=== PATIENT | female | born 2000 | race Hispanic/Latino ===

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

== ENCOUNTER 2019-06-10 01:54 | Emergency (ER) | payer OTHER ==
--- NOTE | 2019-06-10 07:57 | RAD ---
EXAM: Chest PA and lateral: HISTORY: Cough. Fever. COMPARISON: 05/05/2018 FINDINGS: Heart: Normal cardiac silhouette Aorta: Unremarkable Pulmonary vessels: Normal Costophrenic angles: Costophrenic angles are clear. Lungs: No consolidation or masses. Pneumothorax: No pneumothorax Osseous structures: No osseous abnormalities IMPRESSION: No acute cardiopulmonary process.
== END 2019-06-10 03:10 | disposition home or self-care (01) ==
LOC: ERS 01:54
DX: J06.9 Acute upper respiratory infection, unspecified (principal)
CPT/HCPCS: 71046; 87804

== ENCOUNTER 2019-09-14 19:01 | Emergency (ER) | payer OTHER | END 2019-09-14 19:18 | disposition left against medical advice (07) | LOC: ERS 19:01 | DX: Z53.21 Procedure and treatment not carried out due to patient leaving prior to being seen by health care provider (principal) ==

== ENCOUNTER 2019-12-13 00:03 | Emergency (ER) | payer OTHER ==
[2019-12-13 00:36] LABS: Bilirubin Negative (Negative); Blood, Urine Negative (Negative); Clarity Clear (Clear); Glucose, Urine (Dipstick) Normal (Negative); Leukocyte Negative Leu/uL (Negative); Nitrite Negative (Negative); Protein, Urine (Dipstick) Negative (Neg-Trace); Urobilinogen Normal mg/dL (Less than 2)
[2019-12-13 01:13] LABS: BHCG - Serum POSITIVE (NEGATIVE); Pregs Control Background? CLEAR/WHITE (CLR/WHITE); Pregs Control Bar Appear? YES (CONTROL BAR)
--- NOTE | 2019-12-13 08:10 | ULT ---
PRELIMINARY REPORT/[facility]/EMERGENCY AFTER HOURS PROCEDURE EXAM: US Obstetrical, Complete <14 weeks CLINICAL HISTORY: HX: PELVIC PAIN AT 11WKS PREG. SEE NOTES ON LAST IMAGE. THANKS TECHNIQUE: Transabdominal imaging of the maternal pelvis and a <14 week gestation with image documentation. COMPARISON: None provided. FINDINGS: GESTATION: Single live intrauterine gestation with a crown-rump length of 5.2 cm corresponding to gestational ag e of 11 weeks and 6 days. heart rate of 181 bpm. Yolk sac visualized. UTERUS: Unremarkable. No myometrial mass. OVARIES: Bilateral ovaries demonstrate Doppler vascular flow. No adnexal mass visualized FREE FLUID: Small amount of free fluid. IMPRESSION: Single viable intrauterine corresponding to a gestational age of 11 weeks and 6 days. No ac manpreet abnormality. ELECTRONICALLY SIGNED BY: Angelika Petit MD December 13, 2019 2:30:19 AM CDT This report is intended for review by the ordering physician only, in accordance of law. If you recei ve this report in error, please call [facility] at [phone]. Final report by Dr. Ca: Emergency after-hours study ULTRASOUND: EARLY OBSTETRICAL: HISTORY: 19-year-old female with pelvic pain. FINDINGS: Agreement with preliminary report by [facility]. IMPRESSION: [place] live intrauterine gestation estimated to be 11 weeks 5 days gestational age. Transcribed Date/Time: 12/13/2019 8:46 AM
== END 2019-12-13 03:05 | disposition home or self-care (01) ==
LOC: ERS 00:03
DX: O99.89 Other specified diseases and conditions complicating pregnancy, childbirth and the puerperium (principal); R10.30 Lower abdominal pain, unspecified; Z3A.01 Less than 8 weeks gestation of pregnancy
CPT/HCPCS: 76856; 81003; 84703

== ENCOUNTER 2020-02-16 10:38 | Emergency (ER) | payer OTHER ==
[2020-02-17 12:48] LABS: SARS-CoV-2 MS2 Positive; SARS-CoV-2 N Gene Positive; SARS-CoV-2 S Gene Positive; SARS-CoV-2 orf1ab Negative
== END 2020-02-16 11:55 | disposition home or self-care (01) ==
LOC: ERS 10:38
DX: U07.1 COVID-19 (principal)
CPT/HCPCS: 87635; 99283; U0003

== ENCOUNTER 2020-04-01 23:20 | Day surgery (SDC) | payer OTHER ==
[2020-04-01 23:43] VITALS: BP 110/62; TEMP 98.9; BMI 19.0
--- NOTE | 2020-04-02 00:05 | PDOC.LDHP ---
Labor and Delivery H&P Chief complaint: abdominal pain HPI: 19 yo F at 26.5 wks presented to L&D triage with complaints of abdominal pain. She states that starting in early January she experienced abdominal cramping that would occur sporadically, not elicited by any specific activity or inciting events. This cramping is located in her central abdomen and until today was not associated with any other symptoms. Tonight she noted that she was having some cramping early in the afternoon and around 1900 she developed pain in her sides radiating up to her ribs and down to her hips. Since this was new it concerned her prompting her to seek evaluation. Denies any complications with currently. Notes hx of frequent UTIs but not during this but multiple within the last year. Denies any fever, chills, N/V/D, dysuria, LOF, decreased FM. Pt was diagnosed with COVID-19 in mid January but has not had any sx of this for over 1 mo. Current gestational age (weeks): 26 (5) Grav: 1 Para: 0 OB History Details: No complications per patient Current complications: none Past Medical History: None Current medications: pre-anton vitamins Previous surgical history: none Allergies/Adverse Reactions: Allergies Allergy/AdvReac Type Severity Reaction Status Date / Time iodine Allergy Hives Verified 04/01/20 23:38 Social history: none - Physical Exam Vital signs reviewed and normal: yes General: resting Heart: RRR Lungs: CTAB Abdomen: other (minimal tenderness to mid and epigastric palpation) Extremeties: no edema FHT: category 1 [place] contractions every: No contractions seen on toco - Vaginal Exam cm dilated: 0 Effacement: 0% Station: -3 - OB Labs Blood type: unknown RH: unknown Antibody Screen: unknown HIV: unknown RPR: unknown HEPSAg: unknown - Assessment Normal 2nd Trimester - Plan -: R/O labor - no contractions on toco, no cervical change, spec exam with slightly increased thickness of normal discharge - no pooling and negative valsalva UA: small amount of ketones, no signs of infection VP3 and Gonorrhea/Chlamydia swabs taken and pending - will call if positive VSS and non specific exam No signs of infection or acute abdominal process Discussed return precautions and measures to take at home to help with pains. These findings and plan were discussed with Dr. Tyler who saw the patient and agrees Luis Antonio Arroyo DO PGY2 Addendum - Attending - Attending Attestation Date/Time: 04/02/20 [id number] I personally evaluated the patient and discussed the management with Dr. Arroyo I agree with the History, Examination, Assessment and Plan documented above with any addition or exceptions noted below.
[2020-04-02 01:11] LABS: Bacteria/HPF None Seen HPF (None Seen); Bilirubin Negative (Negative); Blood, Urine Negative (Negative); Clarity Clear (Clear); Glucose, Urine (Dipstick) Normal (Negative); Ketone, Urine 10 mg/dL (Negative); Leukocyte Negative Leu/uL (Negative); Nitrite Negative (Negative); Protein, Urine (Dipstick) Negative (Neg-Trace); RBC/HPF 0-3 HPF (0-3); Specific Gravity, Urine 1.004 (1.002-1.036); Squamous Epithelial None Seen HPF (0-3); Urobilinogen Normal mg/dL (Less than 2); WBC/HPF 0-3 HPF (0-3)
[2020-04-02 01:12] LABS: Urine Culture Reflex No No
[2020-04-02] MEDS ORDERED: Acetaminophen 500 MG TAB PO SCH (01:15)
[2020-04-03 17:24] LABS: Chlamydia by PCR Not Detected (NotDetected); GC by PCR Not Detected (NotDetected)
== END 2020-04-02 01:35 | disposition home or self-care (01) ==
LOC: L&D/OP 23:20
PROVIDERS: ATTEND Nurse Practitioner Family
DX: O99.89 Other specified diseases and conditions complicating pregnancy, childbirth and the puerperium (principal); R10.9 Unspecified abdominal pain; Z3A.26 26 weeks gestation of pregnancy; Z91.041 Radiographic dye allergy status
CPT/HCPCS: 51701; 81001; 87480; 87491; 87510; 87591; 87660; 99285

== ENCOUNTER 2020-06-24 07:40 | Outpatient (CLI) | payer OTHER ==
[2020-06-25 20:28] LABS: SARS-CoV-2 MS2 Positive; SARS-CoV-2 N Gene Negative; SARS-CoV-2 S Gene Negative; SARS-CoV-2 by NAA Not Detected (NotDetected); SARS-CoV-2 orf1ab Negative
== END 2020-06-24 07:41 | disposition home or self-care (01) ==
LOC: LABBT 07:40
PROVIDERS: ATTEND Advanced Practice Midwife
DX: Z20.828 Contact with and (suspected) exposure to other viral communicable diseases (principal)
CPT/HCPCS: 87635; U0003

== ENCOUNTER 2020-06-27 19:30 | Inpatient (IN) | payer OTHER ==
--- NOTE | 2020-06-27 18:43 | PDOC.LDHP ---
Labor and Delivery H&P Chief complaint: scheduled induction (elective) HPI: Patient arrives for elective IOL at term Current gestational age (weeks): 39 Due date: 07/04/20 Dating criteria: first trimester ultrasound (at 7w2d) Grav: 2 Para: 0 OB History Details: 2015 Current complications: other (Anemia) Abnormal US findings: No Past Medical History: Asthma Current medications: pre-anton vitamins Previous surgical history: none Allergies/Adverse Reactions: Allergies Allergy/AdvReac Type Severity Reaction Status Date / Time iodine Allergy Hives Verified 04/01/20 23:38 Social history: none - Physical Exam Vital signs reviewed and normal: yes General: breathing through contractions Lungs: nonlabored breathing Abdomen: gravid Extremeties: no edema FHT: variable decelerations - Vaginal Exam cm dilated: 0 Effacement: 0% Station: -3 - OB Labs Blood type: O RH: positive Antibody Screen: negative HIV: negative RPR: negative HEPSAg: negative 1 hour GCT: negative GBS: negative - Assessment L&D Assessment: elective induction at term - Plan Plan: admit to L&D, cervical ripening, informed consent obtained, anesthesia consult for pain management
[~2020-06-27 19:30] MED LIST changes: +HYDROcodone/Acetaminophen 5/325 mg Tablet PO PRN; +Ibuprofen 800 MG TAB PO PRN; -Iopamidol 370 76% 100 ML VIAL ONE; +Lidocaine 1% (PF) 30 ML VIAL SC PRN; +Methylergonovine 0.2 MG/ML VIAL IM PRN; +Misoprostol 200 MCG TAB PR PRN; +NS / Oxytocin 40 units/1000ml 1,000 ML IV PRN; +NS w/ Oxytocin 10 units 500 ML IV SCH; +Ondansetron PF 4 MG/2 ML Vial IVP PRN; +Promethazine HCl 25 MG/ML VIAL IM PRN; +hydrALAZINE 20 MG/ML VIAL SLOW IVP PRN
[2020-06-27] MEDS: Lactated Ringer's 1,000 ML IV SCH (20:35)
[2020-06-27] MEDS: Misoprostol 100 MCG TAB VAG SCH (20:46)
[2020-06-27 20:59] VITALS: BMI 22.6
[2020-06-27 21:09] LABS: Hemoglobin 9.1 g/dL (12.0-16.0); Mean Corpuscular HGB CONC 31.9 g/dL (32.0-36.0); Mean Corpuscular Hemoglobin 27.8 pg (27.0-31.0); Platelet Count 356 thou/uL (130-400); RBC Distribution Width 13.9 % (11.5-14.5); Red Blood Cell (RBC) Count 3.28 mill/uL (4.20-5.40); White Blood Cell (WBC) Count 9.6 thou/uL (4.8-10.8)
[2020-06-27 21:54] LABS: Syphilis Antibody Nonreactive (Nonreactive); Syphilis Antibody Index 0.06 S/CO (<1.00 Non-Reactive)
[2020-06-27 22:29] LABS: HBSAg Index 0.18 S/CO (0-0.99); Hep B Surf Ag Non-Reactive S/CO (NonReactive)
[2020-06-27] MEDS ORDERED: Fentanyl 100 MCG/2 ML VIAL ONE (22:33)
[2020-06-28] MEDS: Misoprostol 100 MCG TAB VAG SCH ×3 (02:06→19:33)
[2020-06-28] MEDS: Lactated Ringer's 1,000 ML IV SCH ×2 (06:41→15:33)
--- NOTE | 2020-06-28 08:16 | PDOC.BPN ---
- Brief Progress Note Encounter Date: 06/28/20 Encounter Time: 08:14 Cervical exam 50/-2. FHT baseline 155, mod variability, +accels, no decels, Cat 1 Mild palpated contractions Q1min. patient is resting through them. Place another 50mcg cytotec PV when contraction pattern allows per protocol.
[2020-06-28] MEDS ORDERED: FLU VACC QS2020-21(6MOS UP)/PF 60 MCG/0.5 ML SYRINGE IM ONE (09:00)
[2020-06-28] MEDS: Butorphanol Tartrate 1 MG/ML VIAL SLOW IVP PRN ×3 (12:44→19:36)
--- NOTE | 2020-06-28 12:49 | PDOC.BPN ---
- Brief Progress Note Encounter Date: 06/28/20 Encounter Time: 12:44 Cooks balloon placed with 60mLs in each side. Patient tolerated well. Regular diet x 1 then return to clear diet.
[2020-06-29] MEDS: Lactated Ringer's 1,000 ML IV SCH ×3 (05:42→18:50)
[2020-06-29] MEDS: Misoprostol 100 MCG TAB VAG SCH (05:42)
[2020-06-29] MEDS ORDERED: Acetaminophen 500 MG TAB PO PRN ×2 (14:21→14:24)
--- NOTE | 2020-06-29 14:25 | PDOC.BPN ---
- Brief Progress Note Encounter Date: 06/29/20 Encounter Time: 08:15 AROM and IUPC placed at time of AROM /. Clear fluid. IUPC placed without difficulty. Pt was on 12 units of pitocin at the time.
--- NOTE | 2020-06-29 14:27 | PDOC.BPN ---
- Brief Progress Note Encounter Date: 06/29/20 Encounter Time: 14:18 RN notified pt temp was 100.0 and tachycardia. Orders placed for Ampicillin and gentamicin IVPB and 1000mg given.
[2020-06-29] MEDS: AMPicillin 1 GM in Sodium Chloride 0.9% 100 ML IVPB SCH ×2 (15:58→21:38)
[2020-06-29] MEDS ORDERED: Gentamicin 240 MG in Sodium Chloride 0.9% 100 ML IVPB SCH (16:00)
[2020-06-29] MEDS ORDERED: Bupivacaine 0.5% 20 ML, fentaNYL Citrate/PF 400 MCG in Sodium Chloride 0.9% 72 ML EPIDURAL SCH (18:00)
[2020-06-29] MEDS ORDERED: DISCONTINUE ALL PREVIOUS NARCOTICS FS SCH (18:00)
[2020-06-29] MEDS ORDERED: Ondansetron PF 4 MG/2 ML Vial IVP PRN ×2 (18:30→23:35)
[2020-06-29] MEDS ORDERED: Lactated Ringer's 500 ML IV PRN (18:30)
[2020-06-29] MEDS ORDERED: Fentanyl 4 mcg/Bupivacaine 0.1% Cassette 100 ML EPIDURAL SCH (18:30)
[2020-06-29] MEDS ORDERED: Promethazine HCl 25 MG/ML VIAL IM PRN ×2 (18:30→23:35)
[2020-06-29] MEDS ORDERED: Naloxone HCl 0.4 mg/ml Vial IVP PRN ×4 (18:30→23:35)
[2020-06-29] MEDS ORDERED: ePHEDrine 50 MG/ML VIAL SLOW IVP PRN (18:30)
[2020-06-29] MEDS ORDERED: Acetaminophen 325 MG TAB PO PRN (18:30)
[2020-06-29] MEDS ORDERED: diphenhydrAMINE 50 MG/ML VIAL IVP PRN ×2 (18:30→23:35)
[2020-06-29] MEDS ORDERED: Communication Order-Pharmacy FS SCH ×2 (18:30→23:45)
[2020-06-29] MEDS ORDERED: CEFAZOLIN 2 GM in Premix Bag 1 BAG IVPB SCH (22:45)
[2020-06-29] MEDS ORDERED: Azithromycin 500 MG in Sodium Chloride 0.9% 250 ML 250 ML IVPB SCH (22:45)
[2020-06-29] MEDS ORDERED: Bicitra 30 ML UDCUP PO SCH (22:45)
--- NOTE | 2020-06-29 22:47 | PDOC.BPN ---
- Brief Progress Note Encounter Date: 06/29/20 Encounter Time: 22:45 discussed proceeding with delivery due to failure to descend and failure to progress. pt agrees with plan or care. Azithromycin and Ancef.
[2020-06-29] MEDS ORDERED: Morphine PF 10 MG/10 ML VIAL ONE (23:00)
[2020-06-29] MEDS ORDERED: Fentanyl 100 MCG/2 ML VIAL ONE (23:00)
[2020-06-29] MEDS ORDERED: Oxytocin 10 UNITS/ML VIAL ONE (23:01)
[2020-06-29] MEDS ORDERED: CEFAZOLIN 1 GM VIAL ONE (23:01)
[2020-06-29] MEDS ORDERED: Dexamethasone 4 mg/ml Vial ONE (23:01)
[2020-06-29] MEDS ORDERED: Ketorolac Tromethamine 30 MG/ML VIAL ONE (23:01)
[2020-06-29] MEDS ORDERED: PHENYLEPHRINE-NS 100 MCG/ML 10 ML SYRINGE ONE (23:01)
[2020-06-29] MEDS ORDERED: ePHEDrine 50 MG/ML VIAL ONE (23:01)
[2020-06-29] MEDS ORDERED: Ondansetron PF 4 MG/2 ML Vial ONE (23:21)
[2020-06-29] MEDS ORDERED: Promethazine HCl 25 MG SUPP PR PRN (23:35)
[2020-06-29] MEDS ORDERED: Meperidine HCl/PF 25 MG/ML VIAL SLOW IVP PRN (23:35)
[2020-06-29] MEDS ORDERED: Ondansetron HCl/PF 4 MG/2 ML Vial IVP PRN (23:35)
[2020-06-29] MEDS ORDERED: L&D-Morphine 4 MG/ML VIAL SLOW IVP PRN (23:35)
[2020-06-29] MEDS ORDERED: HYDROmorphone 2 MG/ML VIAL SLOW IVP PRN (23:35)
[2020-06-29] MEDS ORDERED: Naloxone HCl 0.4 mg/ml Vial IV PRN (23:35)
[2020-06-29] MEDS ORDERED: Ketorolac Tromethamine 30 MG/ML VIAL IVP SCH (23:45)
--- NOTE | 2020-06-30 00:07 | PDOC.OPDEL ---
OB Operative/Delivery Note Delivery Dr/Surgeon: Nayeli Assist: Light Pre-Delivery Diagnosis: elective induction Procedure/Post Delivery Dx: primary low transverse CS Weeks gestation: 39 Anesthesia: epidural - Findings A Sex: female Weight: 6 lb 10 oz - 1 min: 8 - 5 min: 9 - Additional Findings/Plan Placenta delivered: manual removal Compilations/Other Findings: chorioamnionitis on antibiotics. Will continue for next 24 hours. Post delivery plan: routine recovery
[2020-06-30] MEDS ORDERED: Acetaminophen 325 MG TAB PO PRN (04:02)
[2020-06-30] MEDS ORDERED: Methylergonovine 0.2 MG/ML VIAL IM PRN (04:02)
[2020-06-30] MEDS ORDERED: hydrALAZINE 20 MG/ML VIAL SLOW IVP PRN (04:02)
[2020-06-30] MEDS ORDERED: diphenhydrAMINE 25 MG CAP PO PRN (04:02)
[2020-06-30] MEDS ORDERED: Misoprostol 200 MCG TAB PR PRN (04:02)
[2020-06-30] MEDS ORDERED: NS / Oxytocin 40 units/1000ml 1,000 ML IV SCH (04:02)
[2020-06-30] MEDS ORDERED: Sodium Chloride 0.9% 10 ML ONE ×2 (04:30→20:22)
[2020-06-30] MEDS: Ketorolac Tromethamine 30 MG/ML VIAL IVP PRN ×2 (04:33→11:32)
--- NOTE | 2020-06-30 05:51 | OP ---
DATE OF PROCEDURE: 06/27/2020 PRIMARY OB: Ms. Bartlett Jinny, certified nurse straightedge man. PREOPERATIVE DIAGNOSES: 1. Intrauterine at 39 weeks and 3 days. 2. Rest of labor. 3. Chorioamnionitis. 4. Persistent transverse malpresentation. POSTOPERATIVE DIAGNOSES: 1. Intrauterine at 39 weeks and 3 days. 2. Rest of labor. 3. Chorioamnionitis. 4. Persistent transverse malpresentation. PROCEDURES: Primary lower transverse section. COPPER MINER BLASTING: Tri Stearns, certified nurse straightedge man. ESTIMATED BLOOD LOSS: 700 mL. QUANTITATIVE BLOOD LOSS: Not available at this time. COUNTS: Correct. COMPLICATIONS: None. FINDINGS: Female infant delivered in vertex transverse lie at 2325 on 06/29/2020. Apgars are 9 and 9. Weight unavailable at time of dictation. One nuchal cord x1 was noted. DESCRIPTION OF PROCEDURE: The patient after being counseled to the reasons behind the recommended primary of arrest, the patient was taken back to the operating room. Of note, the patient has been in the long induction process of over 48 hours with little progress today since removal of the Aguila balloon. Fetus was noted to be in a persistent transverse lie in -2 station. After being taken to the operating room, she was placed in dorsal supine position with a leftward tilt. She was prepared and draped in a normal sterile fashion. After testing for adequacy of anesthesia, the patient's family was brought back. A Pfannenstiel skin incision was made, which was carried down to the level of the fascia. Fascia was incised and extended laterally with Cantu scissors. The fascia was then sharply and bluntly dissected off the underlying rectus muscles. Peritoneal cavity was entered into bluntly and extended bluntly. The Miguelito O retractor was then inserted without difficulty and used for self retraction. The head was noted to be very close to the Pfannenstiel incision. A bladder flap was created and taken down and hysterotomy was made in the lower uterine segment in a transverse fashion. head was delivered to the hysterotomy with little difficulty and delivered a sterile field. The infant was wrapped in a blanket and delayed cord clamping was performed. At least one minute has passed, a cord was clamped and cut. The was passed off to the waiting attendants. The placenta was then delivered manually and then the uterus was cleared of all clot and debris. Fundus was noted to be firm with more boggy lower uterine segment. The hysterotomy was closed in with #1 PDS in a running locking suture and followed by a second-imbricating layer. Inspection of the hysterotomy showed some residual bleeding on the left side, which was closed with a single [id number]. Upon inspection of the uterus, the bladder was noted to be fairly close to the second layer of imbricating sutures to the point that the bladder was backfilled to better identify its boundaries. The uterine remained clear without any signs of bleeding. The bladder was backfilled to show the boundaries of the bladder and some very minimal sharp dissection was made in the adventitial layer in the right corner, where it was closest to the underlying suture clarifying that the boundaries of the bladder was not interrupted by the suture itself. With this done, the bladder was drained off sterile milk and the procedure was continued. The peritoneal cavity was then closed with 2-0 chromic in a running fashion. The fascia was closed with 0 Vicryl in a running fashion. The subcuticular fat was closed with 3-0 plain gut in a running fashion. The skin was closed with 4-0 Monocryl in a running fashion. At this point, the procedure was completed and the patient was placed back in the hands of anesthesia nursing staff for transport to recovery. Of note, the music sound light technician upon removal of the Aguila noted that there was some bleeding in the catheter and at the end of that, the Aguila bulb itself had been ruptured. At this point in time, discussion was made with the nursing staff who backfilled the bladder and realized that she had inadvertently filled the bladder through the Aguila port and ruptured the bulb itself. It appeared that the bulb which was a silicone catheter did not appear to have any residual pieces missing. Job ID: [id number]
[2020-06-30] MEDS: AMPicillin 1 GM in Sodium Chloride 0.9% 100 ML IVPB SCH ×3 (08:03→20:19)
[2020-06-30] MEDS: Ferrous Sulfate 325 MG TAB PO SCH ×2 (08:07→20:20)
[2020-06-30] MEDS: Docusate Calcium (SURFAK) 240 MG CAP PO SCH ×2 (08:07→20:20)
[2020-06-30] MEDS: Prenatal Vitamin 1 TAB PO SCH (08:08)
[2020-06-30] MEDS ORDERED: Adacel (T-DAP) 0.5 ML SYRINGE IM ONE (09:00)
[2020-06-30] MEDS: Ondansetron ODT 4 MG TAB PO PRN ×2 (12:09→20:35)
[2020-06-30] MEDS: Lactated Ringer's 1,000 ML IV SCH (14:05)
[2020-06-30] MEDS: Misoprostol 100 MCG TAB VAG SCH ×2 (14:06→14:07)
[2020-06-30] MEDS: HYDROcodone/Acetaminophen 5/325 mg Tablet PO PRN ×2 (16:19→20:35)
[2020-06-30] MEDS: Simethicone Chewable 80 MG TAB PO PRN (16:19)
--- NOTE | 2020-06-30 16:58 | PDOC.PP ---
Post Progress Note Post Day #: 1 Subjective: Pt is very tired. has not been upout of bed yet, but plans on taking a shower soon. PO intake tolerated: yes Flatus: yes Ambulation: yes Vital Signs (12 hours) Temp Pulse Resp BP Pulse Ox 06/30/20 16:20 98.6 F 117 H 18 100/52 L 06/30/20 11:47 98.5 F 108 H 20 98/53 L 97 06/30/20 08:19 97.6 F 120 H 20 114/55 L 98 06/30/20 05:45 117 H 06/30/20 05:15 98.0 F 131 H 15 123/60 Weight Weight 108 lb - Physical Examination General: NAD Respiratory: non-labored breathing Abdominal: lochia (minimal), no distention, appropriately TTP Skin: CS incision dry & intact, no rash Neurological: no gross focal deficits Psychiatric: A&Ox3, normal affect Result Diagrams: 06/27/20 20:43 Additional Labs: Post Labs Hep Bs Antigen Non-Reactive S/CO (NonReactive) 06/27/20 20:43 Blood Type O POSITIVE 06/27/20 20:43 (1) Failure of descent in labor, delivered, current hospitalization Code(s): O62.2 - OTHER UTERINE INERTIA Status: Acute (2) Status post primary low transverse section Code(s): Z98.891 - HISTORY OF UTERINE SCAR FROM PREVIOUS SURGERY Status: Acute (3) Chorioamnionitis Code(s): O41.1290 - CHORIOAMNIONITIS, UNSP TRIMESTER, NOT APPLICABLE OR UNSP Status: Acute Qualifiers: Trimester: third trimester - Assessment/Plan A: G1 now p1 s/p LTCS for failure to progress Chorioamnionitis Slight tachycardia secondary to anemia P: Continue abx x 24 hours hemagram in am routine care
[2020-06-30] MEDS ORDERED: Gentamicin 240 MG in Sodium Chloride 0.9% 100 ML IVPB SCH (17:30)
[2020-07-01] MEDS: AMPicillin 1 GM in Sodium Chloride 0.9% 100 ML IVPB SCH ×2 (02:16→07:35)
[2020-07-01] MEDS: HYDROcodone/Acetaminophen 5/325 mg Tablet PO PRN ×5 (02:16→23:56)
[2020-07-01] MEDS: Ibuprofen 800 MG TAB PO SCH ×3 (05:15→21:44)
[2020-07-01 06:07] LABS: Hemoglobin 5.2 g/dL (12.0-16.0); Mean Corpuscular HGB CONC 33.3 g/dL (32.0-36.0); Mean Corpuscular Hemoglobin 29.5 pg (27.0-31.0); Mean Corpuscular Volume 88.5 fL (78.0-98.0); Mean Platelet Volume 7.5 fL (7.4-10.4); Platelet Count 246 thou/uL (130-400); RBC Distribution Width 14.2 % (11.5-14.5); Red Blood Cell (RBC) Count 1.75 mill/uL (4.20-5.40); White Blood Cell (WBC) Count 18.4 thou/uL (4.8-10.8)
[2020-07-01] MEDS ORDERED: Acetaminophen 325 MG TAB PO SCH (06:30)
[2020-07-01] MEDS ORDERED: diphenhydrAMINE 25 MG CAP PO SCH (06:30)
[2020-07-01] MEDS: Docusate Calcium (SURFAK) 240 MG CAP PO SCH ×2 (08:17→21:45)
[2020-07-01] MEDS: Prenatal Vitamin 1 TAB PO SCH (08:17)
[2020-07-01] MEDS: Ondansetron ODT 4 MG TAB PO PRN (08:18)
[2020-07-01] MEDS ORDERED: Sodium Chloride 0.9% 10 ML ONE (09:49)
[2020-07-01] MEDS: Ferrous Sulfate 325 MG TAB PO SCH ×2 (11:28→21:44)
--- NOTE | 2020-07-01 11:54 | PDOC.PP ---
Post Progress Note Post Day #: 2 Subjective: Pt is very tired. Trying to breastfeed PO intake tolerated: yes Flatus: yes Ambulation: yes Vital Signs (12 hours) Temp Pulse Pulse Resp BP BP Pulse Ox 07/01/20 09:40 98.6 F 104 H 16 107/56 L 07/01/20 09:20 98.3 F 112 H 16 112/56 L 07/01/20 07:50 98.9 F 108 H 20 92/50 L 96 07/01/20 05:10 97.8 F 111 H 14 97/52 L 07/01/20 00:20 98.5 F 107 H 14 99/52 L Weight Weight 108 lb - Physical Examination General: NAD Respiratory: non-labored breathing Abdominal: lochia, no distention Extremities: negative homans (B) Skin: no rash Neurological: no gross focal deficits Psychiatric: A&Ox3, normal affect Result Diagrams: 07/01/20 05:22 Additional Labs: Post Labs Hep Bs Antigen Non-Reactive S/CO (NonReactive) 06/27/20 20:43 Blood Type O POSITIVE 07/01/20 06:35 (1) Failure of descent in labor, delivered, current hospitalization Code(s): O62.2 - OTHER UTERINE INERTIA Status: Acute (2) Status post primary low transverse section Code(s): Z98.891 - HISTORY OF UTERINE SCAR FROM PREVIOUS SURGERY Status: Acute (3) Chorioamnionitis Code(s): O41.1290 - CHORIOAMNIONITIS, UNSP TRIMESTER, NOT APPLICABLE OR UNSP Status: Acute Qualifiers: Trimester: third trimester (4) Anemia Code(s): D64.9 - ANEMIA, UNSPECIFIED Status: Acute - Assessment/Plan A: G1 now P1 s/p LTCS for failure to progress Severe anemia secondary to blood loss P: d/c antibiotics today. 2 units of PBRCs am run hemagram
[2020-07-01] MEDS: Simethicone Chewable 80 MG TAB PO PRN (13:21)
[2020-07-02] MEDS: HYDROcodone/Acetaminophen 5/325 mg Tablet PO PRN ×5 (01:00→17:07)
[2020-07-02] MEDS: Ibuprofen 800 MG TAB PO SCH ×2 (05:02→14:31)
--- NOTE | 2020-07-02 08:12 | PDOC.PP ---
Post Progress Note Post Day #: 3 Subjective: Pt is feeling better s/p 2 units of PBRCs. Denies dizziness, sob. Desires discharge. PO intake tolerated: yes Flatus: yes Ambulation: yes Vital Signs (12 hours) Pulse BP 07/02/20 01:27 92 113/58 L Weight Weight 108 lb - Physical Examination General: NAD Cardiovascular: RRR Respiratory: non-labored breathing Abdominal: lochia, no distention, appropriately TTP Extremities: negative homans (B) Skin: CS incision dry & intact Neurological: no gross focal deficits Psychiatric: A&Ox3, normal affect Result Diagrams: 07/01/20 05:22 Additional Labs: Post Labs Hep Bs Antigen Non-Reactive S/CO (NonReactive) 06/27/20 20:43 Blood Type O POSITIVE 07/01/20 06:35 (1) Failure of descent in labor, delivered, current hospitalization Code(s): O62.2 - OTHER UTERINE INERTIA Status: Acute (2) Status post primary low transverse section Code(s): Z98.891 - HISTORY OF UTERINE SCAR FROM PREVIOUS SURGERY Status: Acute (3) Chorioamnionitis Code(s): O41.1290 - CHORIOAMNIONITIS, UNSP TRIMESTER, NOT APPLICABLE OR UNSP Status: Acute Qualifiers: Trimester: third trimester (4) Anemia Code(s): D64.9 - ANEMIA, UNSPECIFIED Status: Acute - Assessment/Plan A: G1 now P1 s/p LTCS for failure to progress with NML PPD 3 exam s/p 2 units of PBRCs. Regular heart rate - resolved tachycardia Afebrile. P: Awaiting am lab draw results routine care Plan for discharge if Hemagram is normal.
[2020-07-02] MEDS: Docusate Calcium (SURFAK) 240 MG CAP PO SCH (08:37)
[2020-07-02] MEDS: Prenatal Vitamin 1 TAB PO SCH (08:37)
[2020-07-02] MEDS: Simethicone Chewable 80 MG TAB PO PRN (08:38)
[2020-07-02] MEDS: Ferrous Sulfate 325 MG TAB PO SCH (08:38)
[2020-07-02] MEDS: Ondansetron ODT 4 MG TAB PO PRN (11:01)
[2020-07-02] MEDS ORDERED: FLU VACC QS2020-21(6MOS UP)/PF 60 MCG/0.5 ML SYRINGE IM ONE (12:00)
[2020-07-02 13:04] LABS: Hemoglobin 9.6 g/dL (12.0-16.0); Mean Corpuscular HGB CONC 34.4 g/dL (32.0-36.0); Mean Corpuscular Hemoglobin 30.8 pg (27.0-31.0); Mean Corpuscular Volume 89.5 fL (78.0-98.0); Mean Platelet Volume 6.8 fL (7.4-10.4); Platelet Count 310 thou/uL (130-400); RBC Distribution Width 13.9 % (11.5-14.5); Red Blood Cell (RBC) Count 3.11 mill/uL (4.20-5.40); White Blood Cell (WBC) Count 12.2 thou/uL (4.8-10.8)
[2020-07-02 15:48] VITALS: BP 115/72; TEMP 98.7
== END 2020-07-02 17:30 | disposition home or self-care (01) | DRG 786 ==
LOC: L&D 19:48 → 3SW 06-30 04:17
PROVIDERS: ADMIT Student in an Organized Health Care Education/Training Program; ATTEND Student in an Organized Health Care Education/Training Program
PROC: 10D00Z1 Extraction of Products of Conception, Low, Open Approach (ICD-10-PCS; principal; 2020-06-27)
PROC: 30233N1 Transfusion of Nonautologous Red Blood Cells into Peripheral Vein, Percutaneous Approach (ICD-10-PCS; 2020-07-01)
DX: O99.02 Anemia complicating childbirth (principal); O41.1230 Chorioamnionitis, third trimester, not applicable or unspecified; D62 Acute posthemorrhagic anemia; Z3A.39 39 weeks gestation of pregnancy; Z37.0 Single live birth; O76 Abnormality in fetal heart rate and rhythm complicating labor and delivery; O32.2XX0 Maternal care for transverse and oblique lie, not applicable or unspecified; O62.2 Other uterine inertia; Z20.828 Contact with and (suspected) exposure to other viral communicable diseases
CPT/HCPCS: 36415; 36430; 51702; 85027; 86780; 86850; 86900; 86901; 87340; 87635; 90471; 90662; G0008; J0290; J0595; J0690; J1100; J1580; J1885; J2270; J2405; J2590; J3010; J3490; P9016; Q0162; Q0163; U0003

== ENCOUNTER 2021-12-05 14:43 | Emergency (ER) | payer OTHER ==
[~2021-12-05 14:43] MED LIST changes: -HYDROcodone/Acetaminophen 5/325 mg Tablet PO PRN; -Ibuprofen 800 MG TAB PO PRN; +Iopamidol-370 76% 500 ML 1 ML ONE; -Lidocaine 1% (PF) 30 ML VIAL SC PRN; -Methylergonovine 0.2 MG/ML VIAL IM PRN; -Misoprostol 200 MCG TAB PR PRN; -NS / Oxytocin 40 units/1000ml 1,000 ML IV PRN; -NS w/ Oxytocin 10 units 500 ML IV SCH; -Ondansetron PF 4 MG/2 ML Vial IVP PRN; -Promethazine HCl 25 MG/ML VIAL IM PRN; -hydrALAZINE 20 MG/ML VIAL SLOW IVP PRN
[2021-12-05] MEDS ORDERED: methylPREDNISolone Sod Succ 40 MG VIAL ONE (15:22)
[2021-12-05] MEDS ORDERED: Ondansetron PF 4 MG/2 ML Vial ONE (15:22)
[2021-12-05] MEDS ORDERED: Famotidine/PF 20 mg/2ml Vial ONE (15:22)
[2021-12-05] MEDS ORDERED: Dicyclomine 20 MG/2 ML VIAL ONE (15:22)
[2021-12-05] MEDS ORDERED: Acetaminophen 500 MG TAB ONE (15:22)
[2021-12-05] MEDS ORDERED: diphenhydrAMINE 50 MG/ML VIAL ONE (15:24)
[2021-12-05 15:25] LABS: #Lymphocytes 0.6 thou/uL (1.20-3.40); #Monocytes 0.3 thou/uL (0.11-0.59); %Basophils 0.1 % (0.0-1.0); %Eosinophils 0.6 % (0.0-10.0); %Lymphocytes 7.7 % (21.0-51.0); %Monocytes 3.6 % (0.0-10.0); Hemoglobin 14.7 g/dL (12.0-16.0); Mean Corpuscular HGB CONC 33.7 g/dL (32.0-36.0); Mean Corpuscular Hemoglobin 33.5 pg (27.0-31.0); Mean Corpuscular Volume 99.4 fL (78.0-98.0); Mean Platelet Volume 6.2 fL (7.4-10.4); Platelet Count 280 thou/uL (130-400); RBC Distribution Width 11.2 % (11.5-14.5); Red Blood Cell (RBC) Count 4.38 mill/uL (4.20-5.40); White Blood Cell (WBC) Count 7.9 thou/uL (4.8-10.8)
[2021-12-05 15:46] LABS: ALT (SGPT) 9 U/L (8-55); AST (SGOT) 19 U/L (5-34); Albumin 4.7 g/dL (3.5-5.0); Alkaline Phosphatase 73 U/L (40-110); Anion Gap 14 mmol/L (10-20); BUN (Urea Nitrogen) 12 mg/dL (7.0-18.7); Calc. Creatinine Clearance 0 mL/min (70-130); Calcium 9.2 mg/dL (7.8-10.44); Carbon Dioxide 22 mmol/L (22-29); Chloride 104 mmol/L (98-107); Glucose 100 mg/dL (70-105); Lipase 23 U/L (8-78); Potassium 3.4 mmol/L (3.5-5.1); Protein, Total 7.7 g/dL (6.0-8.3); Sodium 137 mmol/L (136-145)
[2021-12-05 16:55] LABS: Bacteria/HPF None Seen HPF (None Seen); Bilirubin Negative (Negative); Blood, Urine 1+ (Negative); Clarity Clear (Clear); Glucose, Urine (Dipstick) Normal (Negative); Ketone, Urine 20 mg/dL (Negative); Leukocyte Negative Leu/uL (Negative); Nitrite Negative (Negative); Protein, Urine (Dipstick) 20 mg/dL (Neg-Trace); RBC/HPF 0-3 HPF (0-3); Specific Gravity, Urine 1.026 (1.002-1.036); Squamous Epithelial 0-3 HPF (0-3); Urobilinogen Normal mg/dL (Less than 2); WBC/HPF 0-3 HPF (0-3)
[2021-12-05 17:00] LABS: Pregnancy Test - Urine (BHCG) Negative (Negative); Pregu Control Background? CLEAR/WHITE (CLR/WHITE); Pregu Control Bar Appear? YES (CONTROL BAR); Specific Gravity 1.026 (1.002-1.036)
== END 2021-12-05 19:00 | disposition home or self-care (01) ==
LOC: ERS 14:43
DX: R10.32 Left lower quadrant pain (principal); R11.2 Nausea with vomiting, unspecified; R19.7 Diarrhea, unspecified
CPT/HCPCS: 36415; 74177; 80053; 81003; 81015; 81025; 83690; 85025; 96372; 96374; 96375; J0500; J1200; J2405; J2920; Q9967; S0028